=== PATIENT | male | born 1990 | race American Indian/Alaskan Native ===

== ENCOUNTER 2017-01-19 21:23 | Emergency (ER) | payer SELFPAY ==
[2017-01-19 22:22] LABS: Basophils % (Auto) 1.2 % (0.0-1.8); Eosinophils % (Auto) 5.1 % (0.0-4.3); Hemoglobin 13.1 gm/dl (11.8-15.2); Mean Corpuscular HGB Conc 32 % (32-34); Mean Corpuscular Hemoglobin 28 pg (28-32); Mean Corpuscular Volume 86 fl (84-94); Platelet Count 258 K/mm3 (140-440); Red Blood Count 4.77 M/mm3 (3.65-5.03); Red Cell Distribution Width 13.8 % (13.2-15.2); White Blood Count 10.5 K/mm3 (4.5-11.0)
--- NOTE | 2017-01-19 22:29 | XRay Report ---
FINAL REPORT EXAM: XR CHEST ROUTINE 2V HISTORY: cp TECHNIQUE: Frontal and lateral chest x-ray. PRIORS: None. FINDINGS: Cardiac and mediastinal silhouette within normal limits. Lungs are normally expanded. No focal consolidation, pleural effusion or apparent pneumothorax. IMPRESSION: 1. No acute findings.
[2017-01-19 22:32] LABS: Anion Gap 16 mmol/L; BUN/Creatinine Ratio 10; Blood Urea Nitrogen 10 mg/dL (9-20); Carbon Dioxide 28 mmol/L (22-30); Chloride 103.5 mmol/L (98-107); Glucose 92 mg/dL (75-100); Potassium 4.5 mmol/L (3.6-5.0); Sodium 143 mmol/L (137-145)
--- NOTE | 2017-01-20 02:30 | Emergency Department Report ---
ED Chest Pain HPI - General Chief Complaint: Chest Pain Stated Complaint: CHEST PAIN Time Seen by Provider: 01/20/17 02:15 Source: patient Mode of arrival: Ambulatory Limitations: No Limitations - History of Present Illness Initial Comments: 26-year-old male here with 24 hours with chest pain. Patient states his chest pain started last night. It's at the upper edge of his sternum. He states that it sometimes hurts when he takes deep breath. No fevers chills nausea vomiting or shortness of breath no diaphoresis. MD Complaint: chest pain -: hour(s) (24) Onset: during rest, during exertion Pain Location: substernal Pain Radiation: none Severity: mild Severity scale (0 -10): 3 Quality: sharp Consistency: intermittent Improves With: nothing Worsens With: inspiration re: denies: nausea, vomting, diaphoresis, dyspnea, sense of impending doom Other Symptoms: denies: cough, rash, acid taste in mouth, leg swelling, palpitations, burping - Related Data Previous Rx's Medication Instructions Recorded Last Taken Type Ibuprofen [Motrin 600 MG tab] 600 mg PO Q8H PRN #30 tablet 01/20/17 Unknown Rx Allergies Allergy/AdvReac Type Severity Reaction Status Date / Time No Known Allergies Allergy Unverified 01/19/17 21:48 Heart Score - HEART Score History: Slightly suspicious EKG: Normal Age: < 45 Risk factors: No known risk factors Troponin: < normal limit HEART Score: 0 ED Review of Systems ROS: Stated complaint: CHEST PAIN Other details as noted in HPI Comment: All other systems reviewed and negative Constitutional: denies: chills, fever ENT: denies: ear pain, throat pain Respiratory: denies: cough, shortness of breath, wheezing Cardiovascular: denies: chest pain, palpitations Endocrine: no symptoms reported Gastrointestinal: denies: abdominal pain, nausea, diarrhea Genitourinary: denies: urgency, dysuria Musculoskeletal: denies: back pain, joint swelling, arthralgia Skin: denies: rash, lesions Neurological: denies: headache, weakness, paresthesias Psychiatric: denies: anxiety, depression Hematological/Lymphatic: denies: easy bleeding, easy bruising ED Past Medical Hx - Past Medical History Previous Medical History?: No - Surgical History Past Surgical History?: No - Social History Smoking Status: Current Every Day Smoker Substance Use Type: Alcohol - Medications Home Medications: Home Medications Medication Instructions Recorded Confirmed Last Taken Type Ibuprofen [Motrin 600 MG tab] 600 mg PO Q8H PRN #30 tablet 01/20/17 Unknown Rx ED Physical Exam - General Limitations: No Limitations General appearance: alert, in no apparent distress - Head Head exam: Present: atraumatic, normocephalic - Eye Eye exam: Present: normal appearance. Absent: scleral icterus, conjunctival injection - ENT ENT exam: Present: mucous membranes moist - Neck Neck exam: Present: normal inspection - Respiratory Respiratory exam: Present: normal lung sounds bilaterally. Absent: respiratory distress, wheezes, rales - Cardiovascular Cardiovascular Exam: Present: regular rate, normal rhythm, normal heart sounds. Absent: systolic murmur, diastolic murmur, rubs, gallop - GI/Abdominal GI/Abdominal exam: Present: soft, normal bowel sounds - Rectal Rectal exam: Present: deferred - Extremities Exam Extremities exam: Present: normal inspection - Back Exam Back exam: Present: normal inspection - Neurological Exam Neurological exam: Present: alert, oriented X3 - Psychiatric Psychiatric exam: Present: normal affect, normal mood - Skin Skin exam: Present: warm, dry, intact, normal color. Absent: rash ED Course Vital Signs 01/19/17 01/20/17 21:48 02:02 Temperature 98.5 F 97.3 F L Pulse Rate 52 L 53 L Respiratory 17 18 Rate Blood Pressure 135/70 121/67 O2 Sat by Pulse 99 100 Oximetry ED Medical Decision Making - Lab Data Result diagrams: 01/19/17 22:02 01/19/17 22:02 Laboratory Results - last 24 hr 01/19/17 01/19/17 01/20/17 22:02 22:02 00:15 WBC 10.5 RBC 4.77 Hgb 13.1 Hct 41.0 MCV 86 MCH 28 MCHC 32 RDW 13.8 Plt Count 258 Lymph % (Auto) 29.9 [place] % (Auto) 11.7 H Eos % (Auto) 5.1 H Baso % (Auto) 1.2 Lymph # 3.1 [place] # 1.2 H Eos # 0.5 H Baso # 0.1 Seg Neutrophils % 52.1 Seg Neutrophils # 5.5 Sodium 143 Potassium 4.5 Chloride 103.5 Carbon Dioxide 28 Anion Gap 16 BUN 10 Creatinine 1.0 Estimated GFR > 60 BUN/Creatinine Ratio 10 Glucose 92 Calcium 9.0 Troponin T < 0.010 < 0.010 - EKG Data -: EKG Interpreted by Me - EKG Data 01/20/17 02:36 Sinus rate of 51 minute, normal axis normal intervals no ST-T wave changes - Radiology Data Radiology results: report reviewed, image reviewed - Medical Decision Making 26-year-old male here with complaint of chest pain. Patient has pain with inspiration. Pain is at the center of his chest. No fevers chills nausea vomiting. Labs are unremarkable chest x-ray is unremarkable EKG is normal.The patient has PE. Plan discharge patient home with NSAIDs. Critical care attestation.: If time is entered above; I have spent that time in minutes in the direct care of this critically ill patient, excluding procedure time. ED Disposition Clinical Impression: Chest pain Disposition: DC-01 TO HOME OR SELFCARE Is pt being admited?: No Condition: Stable Instructions: Chest Pain (ED) Prescriptions: Ibuprofen [Motrin 600 MG tab] 600 mg PO Q8H PRN #30 tablet PRN Reason: Pain Referrals: PRIMARY CARE, [Primary Care Provider] - 3-5 Days
[2017-01-20] MEDS ORDERED: TORADOL IM ONE (02:37)
[2017-01-20 05:03] VITALS: BP 112/76
== END 2017-01-20 03:30 | disposition home or self-care (01) ==
LOC: ED 21:23
DX: R07.89 Other chest pain (principal); F17.210 Nicotine dependence, cigarettes, uncomplicated
CPT/HCPCS: 36415; 71020; 80048; 84484; 85025; 93005; 93010; 96372; 99284; J1885

== ENCOUNTER 2021-08-06 10:34 | Emergency (ER) | payer SELFPAY ==
[2021-08-06] MEDS ORDERED: LACTULOSE 20 GM/30 ML ORAL LIQD PO ONE (11:21)
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
--- NOTE | 2021-08-06 12:24 | XRay Report ---
ABDOMEN 2 VIEW(S) INDICATION / CLINICAL INFORMATION: Constipation. COMPARISON: None available. FINDINGS: TUBES / LINES: None. BOWEL GAS PATTERN: There is moderate to severe fecal retention throughout the colon and rectum. No di lated bowel loops, fluid levels or pathologic calcifications are detected. FREE AIR / EXTRALUMINAL GAS: None seen. ADDITIONAL FINDINGS: No significant additional findings. IMPRESSION: Moderate to severe constipation Signer Name: Chi Escalante Jr, MD Signed: 08/06/2021 12:05 PM Workstation Name: [id number]
[2021-08-06] MEDS ORDERED: KETOROLAC 60 MG/2 ML INJ IM ONE (18:00)
[2021-08-06 23:17] VITALS: BP 180/100
== END 2021-08-06 23:16 | disposition home or self-care (01) ==
LOC: ED 10:34
DX: K59.00 Constipation, unspecified (principal); F17.200 Nicotine dependence, unspecified, uncomplicated
CPT/HCPCS: 74019; 96372; 99284; J1885

== ENCOUNTER 2021-09-25 09:25 | Inpatient (IN) | payer SELFPAY ==
--- NOTE | 2021-09-25 10:16 | XRay Report ---
ABDOMEN 1 VIEW(S) INDICATION / CLINICAL INFORMATION: CONSTIPA. COMPARISON: 08/06/2021 FINDINGS: TUBES / LINES: None. BOWEL GAS PATTERN: No significant abnormality. Fecal retention in the colon has significantly decreas ed since the previous exam. There is a mild degree of fecal matter in the descending colon. No convin cing constipation. FREE AIR / EXTRALUMINAL GAS: None seen. ADDITIONAL FINDINGS: There is a rounded opacity overlying the right abdomen measuring 7-[address] This is external to the patient. This is a green ball on the patient's back which he requested t o not be removed during the exam due to hemiplegia. IMPRESSION: No significant abnormality. Signer Name: Chi Escalante Jr, MD Signed: 09/25/2021 10:12 AM Workstation Name: [id number]
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
[2021-09-25 12:10] LABS: Basophils # (Auto) 0.1 K/mm3 (0.0-0.1); Basophils % (Auto) 0.3 % (0.0-1.8); Eosinophils # (Auto) 0.2 K/mm3 (0.0-0.4); Eosinophils % (Auto) 1.2 % (0.0-4.3); Hematocrit 35.7 % (35.5-45.6); Hemoglobin 11.6 gm/dl (11.8-15.2); Mean Corpuscular HGB Conc 33 % (32-34); Mean Corpuscular Volume 80 fl (84-94); Monocytes # (Auto) 1.6 K/mm3 (0.0-0.8); Monocytes % (Auto) 8.1 % (0.0-7.3); Platelet Count 366 K/mm3 (140-440); Red Blood Count 4.47 M/mm3 (3.65-5.03); Red Cell Distribution Width 16.4 % (13.2-15.2)
[2021-09-25 12:29] LABS: Alanine Aminotransferase 11 units/L (7-56); Albumin 4.2 g/dL (3.9-5); Blood Urea Nitrogen 9 mg/dL (9-20); Calcium 9.7 mg/dL (8.4-10.2); Hemolysis Index 0
[2021-09-25 12:30] LABS: INR 0.98 (0.87-1.13); Partial Thromboplastin Time 32.4 Sec. (24.2-36.6)
[2021-09-25 12:31] LABS: BUN/Creatinine Ratio 18
[2021-09-25] MEDS ORDERED: KETOROLAC 30 MG/1 ML INJ IV ONE (13:08)
[2021-09-25] MEDS: SODIUM CHLORIDE 0.9% 1000 ML 1,000 ML IV ONE ×2 (13:33→15:13)
--- NOTE | 2021-09-25 13:56 | Cat Scan Report ---
CT ABDOMEN AND PELVIS WITHOUT CONTRAST HISTORY: abdominal pain COMPARISON: None. TECHNIQUE: Axial CT images were obtained through the abdomen and pelvis without IV contrast. Sagittal and coronal reformatted images. All CT scans at this location are performed using CT dose reduction for ALARA by means of automated exposure control. FINDINGS: CT ABDOMEN: Lung Bases: There is moderate infiltrate with air bronchograms in the left lower lobe. There is mild segmental atelectasis in the medial right lower lobe. Normal heart size. Liver: No significant abnormality. Biliary: No significant abnormality. Spleen: No significant abnormality. Unenlarged. Pancreas: No significant abnormality. Adrenals: No significant abnormality. Kidneys: No significant abnormality. Lymphatics: No lymphadenopathy. Vasculature: No significant abnormality. Bowel/Peritoneum: There is a large amount of fecal matter in the colon and rectum. The stomach and sm all bowel loops are unremarkable. Normal appendix. No evidence for obstruction, focal inflammation or obvious mass. CT PELVIS: : No significant abnormality. Osseous Structures: No significant abnormality. Additional Findings: None IMPRESSION: Left lower lobe infiltrate concerning for pneumonia or aspiration. Segmental atelectasis in the media l right lower lobe. Constipation. No acute inflammatory process is identified in the abdomen or pelvis. Signer Name: Chi Escalante Jr, MD Signed: 09/25/2021 1:51 PM Workstation Name: [id number]
[2021-09-25] MEDS ORDERED: PIPERACILLIN/TAZOBACTAM 3.375 3.375 GM/50 ML BAG IV ONE (14:28)
[2021-09-25] MEDS ORDERED: VANCOMYCIN/NS 1 GM/250 ML 1 GM/250 ML BAG IV ONE (14:28)
[2021-09-25] MEDS ORDERED: ACETAMINOPHEN 325 MG TAB PO PRN ×2 (14:29→21:55)
[2021-09-25] MEDS ORDERED: ONDANSETRON 4 MG/2 ML INJ IV PRN ×2 (14:29→21:55)
[2021-09-25] MEDS: MORPHINE 2 MG/1 ML INJ IV PRN ×2 (15:15→18:49)
[2021-09-25 16:48] LABS: Bilirubin,Urine NEG (Negative); Blood,Urine NEG (Negative); Color,Urine Yellow (Yellow); Protein,Urine <15 mg/dL mg/dL (Negative)
[2021-09-25 17:12] LABS: Mucus,Urine FEW /HPF
[2021-09-25] MEDS: DOCUSATE SODIUM 100 MG CAP PO SCH (18:49)
[2021-09-25] MEDS ORDERED: METOCLOPRAMIDE 10 MG/2 ML INJ IV PRN (21:55)
[2021-09-25] MEDS ORDERED: IPRATROPIUM/ALBUTEROL SULFATE 3 ML AMPUL.NEB IH PRN (22:01)
[2021-09-25] MEDS ORDERED: LACTULOSE 20 GM/30 ML ORAL LIQD PO PRN (22:05)
[2021-09-26] MEDS: dexAMETHasone 4 MG/ML VIAL IV SCH ×2 (01:11→10:00)
[2021-09-26] MEDS: DOCUSATE SODIUM 100 MG CAP PO SCH ×3 (01:11→21:39)
[2021-09-26] MEDS: FAMOTIDINE 20 MG/2 ML INJ IV SCH ×3 (01:11→21:39)
[2021-09-26] MEDS: AZITHROMYCIN/NS 500 MG/250 ML 500 MG/250 ML BAG IV SCH ×2 (01:13→09:59)
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
[2021-09-26] MEDS: cefTRIAXone/NS 2 GM/100 ML 2 GM/100 ML BAG IV SCH (09:01)
--- NOTE | 2021-09-26 09:04 | Electrocardiograph Report ---
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
[2021-09-26] MEDS: D5W/0.9% NACL 1,000 ML IV SCH ×2 (10:00→15:21)
[2021-09-27] MEDS: D5W/0.9% NACL 1,000 ML IV SCH (00:09)
[2021-09-27] MEDS: MORPHINE 2 MG/1 ML INJ IV PRN ×3 (01:55→13:33)
--- NOTE | 2021-09-27 08:05 | Progress Note ---
Assessment and Plan - Patient Problems (1) Left lower lobe pneumonia Current Visit: Yes Status: Acute Plan to address problem: Patient initiated on IV Zithromax, IV ceftriaxone and duo nebs. (2) Constipation Current Visit: Yes Status: Acute Qualifiers: Constipation type: unspecified constipation type Qualified Code(s): K59.00 - Constipation, unspecified Plan to address problem: Initiated on lactulose, 30 mL 1 dose (3) Quadriplegia Current Visit: Yes Status: Acute Plan to address problem: Supportive care (4) DVT prophylaxis Current Visit: Yes Status: Acute Plan to address problem: On anticoagulation GI prophylaxis (5) Advance care planning Current Visit: Yes Status: Acute Plan to address problem: Disease education conducted, care plan discussed, diagnosis discussed, prognosis discussed. Patient is full code. Patient acknowledges understanding and agreement with care plan. +30 minutes. Subjective Date of service: 09/26/21 Objective - Constitutional Vitals: Vital Signs - 12hr 09/26/21 09/27/21 23:00 07:00 Pulse Rate 90 90 General appearance: Present: no acute distress, well-nourished - EENT Eyes: PERRL, EOM intact ENT: hearing intact, clear oral mucosa Ears: bilateral: normal - Neck Neck: supple, normal ROM - Respiratory Respiratory effort: normal Respiratory: bilateral: CTA - Breasts Breasts: normal - Cardiovascular Rhythm: regular Heart Sounds: Present: S1 & S2. Absent: gallop, rub Extremities: pulses intact, No edema, normal color, Full ROM - Gastrointestinal General gastrointestinal: Present: soft, non-tender, non-distended, normal bowel sounds - Genitourinary Male genitourinary: normal - Integumentary Integumentary: clear, warm, dry - Musculoskeletal Musculoskeletal: 1, strength equal bilaterally - Neurologic Neurologic: moves all extremities - Psychiatric Psychiatric: memory intact, appropriate mood/affect, intact judgment & insight - Labs CBC & Chem 7: 09/25/21 11:05 09/25/21 11:05
[2021-09-27] MEDS: AZITHROMYCIN/NS 500 MG/250 ML 500 MG/250 ML BAG IV SCH (09:24)
[2021-09-27] MEDS: cefTRIAXone/NS 2 GM/100 ML 2 GM/100 ML BAG IV SCH (09:25)
[2021-09-27] MEDS: FAMOTIDINE 20 MG/2 ML INJ IV SCH ×2 (09:26→22:27)
[2021-09-27] MEDS: dexAMETHasone 4 MG/ML VIAL IV SCH (09:26)
[2021-09-27] MEDS: DOCUSATE SODIUM 100 MG CAP PO SCH ×2 (09:26→22:27)
[2021-09-27] MEDS: GABAPENTIN 300 MG CAP PO SCH ×2 (16:03→22:27)
[2021-09-27] MEDS: CYCLOBENZAPRINE 10 MG TAB PO PRN (16:03)
[2021-09-27] MEDS: KETOROLAC 30 MG/1 ML INJ IV PRN (16:04)
[2021-09-28] MEDS: GABAPENTIN 300 MG CAP PO SCH ×3 (05:43→22:01)
[2021-09-28] MEDS: dexAMETHasone 4 MG/ML VIAL IV SCH (11:19)
[2021-09-28] MEDS: KETOROLAC 30 MG/1 ML INJ IV PRN ×2 (11:19→19:46)
[2021-09-28] MEDS: CYCLOBENZAPRINE 10 MG TAB PO PRN ×2 (11:20→19:46)
[2021-09-28] MEDS: cefTRIAXone/NS 2 GM/100 ML 2 GM/100 ML BAG IV SCH (11:21)
[2021-09-28] MEDS: AZITHROMYCIN/NS 500 MG/250 ML 500 MG/250 ML BAG IV SCH (11:21)
[2021-09-28] MEDS: DOCUSATE SODIUM 100 MG CAP PO SCH ×2 (11:22→22:01)
--- NOTE | 2021-09-28 16:51 | Progress Note ---
Assessment and Plan - Patient Problems (1) Left lower lobe pneumonia Current Visit: Yes Status: Acute Plan to address problem: Patient initiated on IV Zithromax, IV ceftriaxone and duo nebs. (2) Constipation Current Visit: Yes Status: Acute Qualifiers: Constipation type: unspecified constipation type Qualified Code(s): K59.00 - Constipation, unspecified Plan to address problem: Initiated on lactulose, 30 mL 1 dose (3) Quadriplegia Current Visit: Yes Status: Acute Plan to address problem: Supportive care (4) DVT prophylaxis Current Visit: Yes Status: Acute Plan to address problem: On anticoagulation GI prophylaxis (5) Advance care planning Current Visit: Yes Status: Acute Plan to address problem: Disease education conducted, care plan discussed, diagnosis discussed, prognosis discussed. Patient is full code. Patient acknowledges understanding and agreement with care plan. +30 minutes. Subjective Date of service: 09/26/21 Objective - Constitutional Vitals: Vital Signs - 12hr 09/28/21 09/28/21 09/28/21 07:00 08:00 15:00 Pulse Rate 86 88 Pulse Rate [ 87 From Monitor] Respiratory 18 Rate O2 Sat by Pulse 97 Oximetry - Labs CBC & Chem 7: 09/25/21 11:05 09/25/21 11:05
--- NOTE | 2021-09-28 18:09 | Progress Note ---
Assessment and Plan - Patient Problems (1) Left lower lobe pneumonia Current Visit: Yes Status: Acute Plan to address problem: Patient initiated on IV Zithromax, IV ceftriaxone and duo nebs. (2) Constipation Current Visit: Yes Status: Acute Qualifiers: Constipation type: unspecified constipation type Qualified Code(s): K59.00 - Constipation, unspecified Plan to address problem: Initiated on lactulose, 30 mL 1 dose (3) Quadriplegia Current Visit: Yes Status: Acute Plan to address problem: Supportive care (4) DVT prophylaxis Current Visit: Yes Status: Acute Plan to address problem: On anticoagulation GI prophylaxis (5) Advance care planning Current Visit: Yes Status: Acute Plan to address problem: Disease education conducted, care plan discussed, diagnosis discussed, prognosis discussed. Patient is full code. Patient acknowledges understanding and agreement with care plan. +30 minutes. Subjective Date of service: 09/28/21 Objective - Constitutional Vitals: Vital Signs - 12hr 09/28/21 09/28/21 09/28/21 07:00 08:00 15:00 Pulse Rate 86 88 Pulse Rate [ 87 From Monitor] Respiratory 18 Rate O2 Sat by Pulse 97 Oximetry General appearance: Present: no acute distress, well-nourished - EENT Eyes: PERRL, EOM intact ENT: hearing intact, clear oral mucosa Ears: bilateral: normal - Neck Neck: supple, normal ROM - Respiratory Respiratory effort: normal Respiratory: bilateral: CTA - Breasts Breasts: normal - Cardiovascular Rhythm: regular Heart Sounds: Present: S1 & S2. Absent: gallop, rub Extremities: pulses intact, No edema, normal color, Full ROM - Gastrointestinal General gastrointestinal: Present: soft, non-tender, non-distended, normal bowel sounds - Genitourinary Male genitourinary: normal - Integumentary Integumentary: clear, warm, dry - Musculoskeletal Musculoskeletal: 1, strength equal bilaterally - Neurologic Neurologic: moves all extremities - Psychiatric Psychiatric: memory intact, appropriate mood/affect, intact judgment & insight - Labs CBC & Chem 7: 09/25/21 11:05 09/25/21 11:05
[2021-09-28] MEDS: FAMOTIDINE 20 MG TAB PO SCH (22:01)
[2021-09-28] MEDS: FAMOTIDINE 20 MG/2 ML INJ IV SCH (22:08)
[2021-09-29] MEDS: KETOROLAC 30 MG/1 ML INJ IV PRN ×3 (01:58→20:10)
[2021-09-29] MEDS: GABAPENTIN 300 MG CAP PO SCH ×3 (05:47→21:46)
[2021-09-29] MEDS: DOCUSATE SODIUM 100 MG CAP PO SCH ×2 (09:34→21:46)
[2021-09-29] MEDS: dexAMETHasone 4 MG/ML VIAL IV SCH (09:34)
[2021-09-29] MEDS: cefTRIAXone/NS 2 GM/100 ML 2 GM/100 ML BAG IV SCH (09:36)
[2021-09-29] MEDS: FAMOTIDINE 20 MG TAB PO SCH ×2 (09:38→21:46)
[2021-09-29] MEDS: AZITHROMYCIN/NS 500 MG/250 ML 500 MG/250 ML BAG IV SCH (09:38)
--- NOTE | 2021-09-29 15:07 | Discharge Summary ---
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 SUPERVISOR Hospitalization Condition: Stable Disposition: 01 HOME / SELF CARE / HOMELESS - Discharge Diagnoses (1) Left lower lobe pneumonia Status: Acute (2) Constipation Status: Acute Qualifiers: Constipation type: unspecified constipation type Qualified Code(s): K59.00 - Constipation, unspecified (3) Quadriplegia Status: Acute (4) DVT prophylaxis Status: Acute (5) Advance care planning Status: Acute Core Measure Documentation - Palliative Care Palliative Care/ Comfort Measures: Not Applicable - Core Measures Any of the following diagnoses?: none Exam - Constitutional Vitals: Temp Pulse Resp BP Pulse Ox 98.3 F 80 18 176/100 100 09/29/21 08:25 09/29/21 08:25 09/29/21 08:00 09/29/21 08:25 09/29/21 08:25 General appearance: Present: no acute distress, well-nourished - EENT Eyes: Present: PERRL ENT: hearing intact, clear oral mucosa - Neck Neck: Present: supple, normal ROM - Respiratory Respiratory effort: normal Respiratory: bilateral: CTA - Cardiovascular Heart Sounds: Present: S1 & S2. Absent: rub, click - Extremities Extremities: no ischemia, pulses symmetrical, No edema Peripheral Pulses: within normal limits - Abdominal General gastrointestinal: Present: soft, non-tender, non-distended, normal bowel sounds Male genitourinary: Present: normal - Integumentary Integumentary: Present: clear, warm, dry - Musculoskeletal Musculoskeletal: gait normal, strength equal bilaterally - Psychiatric Psychiatric: appropriate mood/affect, intact judgment & insight - Neurologic Neurologic: CNII-XII intact, moves all extremities Plan Activity: no restrictions Follow up with: PRIMARY CARE, [Primary Care Provider] - 3-5 Days Prescriptions: Lactulose [Cephulac] 20 gm PO QDAY PRN #300 ml PRN Reason: Constipation Docusate Sodium [Colace CAP] 100 mg PO BID #60 capsule Cyclobenzaprine [Flexeril 10 MG TAB] 10 mg PO TID PRN 30 Days #60 PRN Reason: Muscle Spasm levoFLOXacin [Levaquin] 750 mg PO QDAY #7 tablet Ibuprofen [Motrin 600 MG tab] 600 mg PO Q8H PRN 30 Days #60 tablet PRN Reason: Pain Gabapentin [Neurontin] 600 mg PO Q8H #90 traMADoL [Ultram 50 MG tab] 50 mg PO BID PRN #60 tablet PRN Reason: Pain
[2021-09-29] MEDS: hydrALAZINE 20 MG/1 ML INJ IV PRN ×2 (20:06→20:28)
[2021-09-29 21:45] VITALS: BP 162/88
== END 2021-09-29 22:45 | disposition home or self-care (01) | DRG 193 ==
LOC: ED 09:25 → 4A 14:29
PROVIDERS: ADMIT Internal Medicine; ATTEND Internal Medicine
DX: J18.9 Pneumonia, unspecified organism (principal); G82.50 Quadriplegia, unspecified; K59.00 Constipation, unspecified; R00.0 Tachycardia, unspecified; Z74.01 Bed confinement status
CPT/HCPCS: 36415; 74018; 74176; 80053; 81001; 82962; 85025; 85610; 85730; 93005; G0378; J3490; J0360; J0456; J0696; J1100; J1885; J2270; J2405; J2543; J3370; J7030; J7042